=== PATIENT | female | born 1950 | race Caucasian/White ===

== ENCOUNTER → 2024-01-23 | Outpatient (CLI) | payer OTHER, SELFPAY ==
--- NOTE | 2024-01-23 15:00 | XR_ITS ---
Examination: Thyroid sonography complete TECHNIQUE: By resolution grayscale sonographic images thyroid lobes with color flow analysis Exam date and time: January 23, 2024 1531 hours Comparison July 25, 2015 INDICATIONS: Sonogram July 25, 2015 large solid nodule replacing the left thyroid lobe 4.7 x 3.4 x 3.4 cm, thyroid biopsy on the left September 20, 2015 FINDINGS: Left thyroid 7.3 x 3.5 x 4.1 cm Upper pole nodule 8 x 5 x 7 mm Upper pole nodule 8 x 5 x 6 mm Lower pole vascular nodule 5.5 x 3.2 x 4.3 cm Absent right thyroid lobe IMPRESSION: Mild interval enlargement of the vascular lower pole left thyroid nodule, consider ultrasound-guided fine-needle aspiration of this nodule
[2024-01-23 15:56] LABS: Collection Type, Urine Clean Catch
[2024-01-23 16:15] LABS: Basophils # (Auto) 0.1 Thou/mm3 (0.0-0.2); Basophils % (Auto) 1 % (0-2.5); Eosinophils # (Auto) 0.2 Thou/mm3 (0.0-0.5); Eosinophils % (Auto) 3 % (0-10); Hematocrit 37.4 % (36.0-46.0); Hemoglobin 12.4 g/dL (12.0-16.0); Immature Granulocytes % (Auto) 0 % (0-0); Immature Granulocytes Auto 0.02 Thou/mm3 (0.00-0.00); Lymphocytes # (Auto) 2.3 Thou/mm3 (1.0-4.8); Lymphocytes % (Auto) 31 % (10-50); Mean Corpuscular HGB Conc 33.2 g/dl (31.0-37.0); Mean Corpuscular Hemoglobin 30.8 pg (25.0-35.0); Mean Corpuscular Volume 93 fL (80-100); Monocytes # (Auto) 0.7 Thou/mm3 (0.0-0.8); Monocytes % (Auto) 9 % (0-12); Neutrophils # (Auto) 4.3 Thou/mm3 (1.8-7.7); Neutrophils % (Auto) 57 % (37-80); Nucleated Red Blood Cell % 0 /100 WBC (0); Platelet Count 198 Thou/mm3 (140-440); RDW Standard Deviation 41.4 fL (36.4-46.3); Red Blood Count 4.02 Miln/mm3 (4.00-5.20); White Blood Count 7.6 Thou/mm3 (3.6-11.0)
[2024-01-23 16:19] LABS: Bacteria,Urine Rare; Bilirubin,Urine Negative (Negative); Blood,Urine Negative (Negative); Clarity,Urine Clear (Clear/Hazy); Culture Indicated,Urine Not Indicated; Glucose, Urine Negative (Negative); Ketones,Urine Negative (Negative); Leukocyte Esterase,Urine Negative (Negative); Nitrite,Urine Negative (Negative); Protein,Urine Trace (Neg - Trace); RBC,Urine 2 /hpf (0-3); Specific Gravity,Urine 1.028 (1.001-1.035); Squamous Epithelial Cell,Urine 1 /hpf (0-5); WBC,Urine 1 /hpf (0-5)
[2024-01-23 16:22] LABS: Glucose Estimated Average 111 mg/dL (80-131); Hemoglobin A1C 5.5 % Hgb (4.8-6.0)
[2024-01-23 16:37] LABS: Color,Urine Lt-Yellow (Lt Yel-Yel)
[2024-01-23 16:38] LABS: Alanine Aminotransferase 19 U/L (10-49); Albumin, Serum 4.5 gm/dL (3.4-4.8); Albumin/Globulin Ratio 2.3 (1.2-2.2); Alkaline Phosphatase 83 U/L (46-116); Anion Gap 4 (7-16); Aspartate Amino Transferase 28 U/L (0-34); BUN/Creatinine Ratio 20 Ratio (12-20); Bilirubin,Total < 0.2 mg/dL (0.3-1.2); Blood Urea Nitrogen 22 mg/dL (9-23); Calcium 9.2 mg/dL (8.3-10.6); Calcium (Corrected) 9.2 mg/dL (8.5-10.1); Carbon Dioxide 29.6 mMol/L (20.0-31.0); Cardiac Risk Estimate 4.8 RATIO (3.7-5.6); Chloride 104 mMol/L (98-107); Cholesterol 214 mg/dL (132-200); Creatinine (Component) 1.1 mg/dL (0.6-1.3); Free T4 (Free Thyroxine) 1.33 ng/dL (0.89-1.76); Glucose 94 mg/dL (74-106); HDL Cholesterol 45 mg/dL (40-60); LDL Cholesterol,Calculated 112 mg/dL (0-130); Osmolality,Calculated 278 (275-295); Potassium 4.2 mMol/L (3.4-5.1); Sodium 138 mMol/L (136-145); Thyroid Stimulating Hormone 0.45 uIU/mL (0.55-4.78); Total Protein 6.5 gm/dL (5.7-8.2); Triglycerides 286 mg/dL (30-150); eGFR 53 See Note
== END | disposition home or self-care (01) ==
LOC: CDIM 15:22 → COPL 15:44
PROVIDERS: PCP Nurse Practitioner Family; Referring Provider Nurse Practitioner Family; Visit Provider Radiology Diagnostic Radiology
DX: E04.1 Nontoxic single thyroid nodule (principal); Z00.00 Encounter for general adult medical examination without abnormal findings; E04.9 Nontoxic goiter, unspecified
CPT/HCPCS: 36415; 76536; 80053; 80061; 81001; 83036; 84439; 84443; 85025

== ENCOUNTER 2024-04-21 11:52 | Emergency (ER) | payer OTHER, SELFPAY ==
[2024-04-21 12:07] VITALS: BP 121/83; PULSE 92; RESP 18; TEMP 36.4; O2SAT 96
--- NOTE | 2024-04-21 12:14 | EKG_ITS ---
[facility] Test Date: 2024-04-21 Pat Name: NELSON CROUCH Department: Room: - Gender: Female System Support Developer: : 1950 Requested By: ED Temporary Provider Order Number: [id number] Reading MD: ED Temporary Provider Measurements Intervals [place] Rate: 85 P: 57 OR: 157 QRS: 21 QRSD: 79 T: 44 QT: 346 QTc: 412 Interpretive Statements SINUS RHYTHM No previous ECG available for comparison /store/S0/[id number]/ecg/[id number].pdf
[2024-04-21 12:15] VITALS: PULSE 223; O2SAT 98; BMI 23.3
[2024-04-21 12:20] VITALS: PULSE 92
--- NOTE | 2024-04-21 12:38 | PD.EDARRY ---
ED Arrhythmia Palp. RME/HPI General Chief Complaint: Arrhythmia/Palpitations Stated Complaint: TACHYCARDIA Time Seen by Provider: 04/21/24 12:38 Arrival date/time: 04/21/24 11:52 Related Data Home Medications ?Medication ?Instructions ?Recorded ?Confirmed Vitamin B Complex (B Complex) 1 PO QDAY ##0 09/20/15 metoprolol tartrate 50 mg tablet 50 mg PO QDAY #0 tabs 09/20/15 tramadol 50 mg tablet (Ultram) 50 mg PO Q4HR PRN WRIST PAIN #0 09/20/15 tabs Allergies Allergy/AdvReac Type Severity Reaction Status Date / Time aspirin Allergy Mild Verified 09/20/15 11:16 codeine Allergy Mild Verified 09/20/15 11:16 POLLEN Allergy Mild Uncoded 08/30/09 23:09 Course Orders Category Date Time Status EKG (ED ONLY) *Do not use* NOW Care 04/21/24 12:14 Completed EKG (ED Only) Stat Exams 04/21/24 12:14 Draft Vital Signs Vital signs: Vital Signs Temperature 97.6 F 04/21/24 12:07 Pulse Rate 92 04/21/24 12:07 Respiratory Rate 18 04/21/24 12:07 Blood Pressure 121/83 04/21/24 12:07 Pulse Oximetry (%) 96 04/21/24 12:07 Oxygen Delivery Method Room Air 04/21/24 12:07 Arrhythmia/Palpitations Evaluation data The following diagnostics were reviewed and interpreted by me:: EKG tracing(s) (My interpretation of the EKG: NSR (85 bpm) with no ST-T changes. Gurjit Farley MD) Discharge Plan Prescriptions/Referrals Prescriptions/Med Rec: No Action tramadol [Ultram] 50 MG tablet 50 mg PO Q4HR PRN (Reason: WRIST PAIN) Qty: 0 Patient Comments: FOR PAIN, NOT TO EXCEED 8 TABS IN 24 HRS metoprolol tartrate 50 MG tablet 50 mg PO QDAY Qty: 0 Vitamin B Complex (B Complex) 1 TAB tablet 1 PO QDAY Qty: 0 Patient/Caregiver Discharge Instructions Print Language: Georgian
--- NOTE | 2024-04-21 12:49 | EDNOTE_ITS ---
ED Arrhythmia Palp. RME/HPI General Chief Complaint: Arrhythmia/Palpitations Stated Complaint: TACHYCARDIA Time Seen by Provider: 04/21/24 12:38 Arrival date/time: 04/21/24 11:52 RME / HPI RME / HPI narrative: DR. FARLEY MAIN ED EVALUATION: This section includes all my notes and documentations, including HPI, PE, and ED course.? Gurjit Farley MD HPI: 73 year old female with past medical history significant for mitral valve prolapse 1976 and since on metoprolol 50 mg every morning, SVT 4-5 years ago followed by Dr. Rosenberg, recently Dr. Rosenberg placed a heart monitor 2 weeks ago and showed some short SVT episodes; patient presents to the Emergency Department BIBA accompanied by with complaint of palpitations. Symptoms are moderate. Per EMS, patient was in SVT in the 220's and converted en route. Patient states she feels better now. Patient denies any recent sickness or drinking caffeine/ energy drinks. No chest pain or shortness of breath. No other complaints reported. ROS: All negative except as documented in HPI. Physical Exam: General:? Alert and oriented.? No acute distress when remaining still.? Eyes:? Conjunctivae and lids clear. ENT:? No nasal congestion.? ? Neck:? Supple. Heart:? RRR. Lungs:? No respiratory distress.? Good air movement.? No rhonchi, wheezing, rales.? Abdomen:? Soft and nontender.? Legs:? No clubbing, cyanosis, edema. Skin:? Warm and dry.? Neuro:? Alert and oriented X 3.? I reviewed all diagnostic test results. My interpretation of the EKG is?sinus rhythm with no acute ST?T changes. My interpretation of the chest x-ray is no acute findings. Blood tests unremarkable. At this point, diagnoses include converted SVT. Treatment: none. Remained stable. Recommended metoprolol 25 mg every night and more outpatient cardiac workup. Based on my best medical judgment, made decision no further evaluation or treatment indicated at this time.? Patient understands and agrees to the discharge instructions customized and printed, see below. Discharge instructions from Dr. Farley: --Fortunately, there is no very serious condition, such as pneumothorax or heart attack. --No physical exertion for 3 days to help rest the lungs. ?No smoking or exposure to smoking or pets or dust or cold air. --Zithromax to kill the germs causing the bronchitis. --Prednisone to help decrease the swelling in the airways. --Albuterol 2 puffs every 4-6 hours for 24 hours to help keep the airways open. Then as needed for cough or shortness of breath. --See a private doctor next week for recheck, if not completely better. --Seek immediate medical care with worsening or with any concerns. Gurjit Farley MD Related Data Home Medications ?Medication ?Instructions ?Recorded ?Confirmed Vitamin B Complex (B Complex) 1 PO QDAY ##0 09/20/15 metoprolol tartrate 50 mg tablet 50 mg PO QDAY #0 tabs 09/20/15 tramadol 50 mg tablet (Ultram) 50 mg PO Q4HR PRN WRIST PAIN #0 09/20/15 tabs Previous Rx's ?Medication ?Instructions ?Recorded metoprolol tartrate 25 mg tablet 25 mg PO QDAY #30 tab s 04/21/24 Allergies Allergy/AdvReac Type Severity Reaction Status Date / Time aspirin Allergy Mild Verified 09/20/15 11:16 codeine Allergy Mild Verified 09/20/15 11:16 POLLEN Allergy Mild Uncoded 08/30/09 23:09 Course Quality Measures none Orders Category Date Time Status EKG (ED ONLY) *Do not use* NOW Care 04/21/24 12:14 Completed EKG (ED Only) Stat Exams 04/21/24 12:14 Draft Vital Signs Vital signs: Vital Signs Temperature 97.6 F 04/21/24 12:07 Pulse Rate 92 04/21/24 12:07 Respiratory Rate 18 04/21/24 12:07 Blood Pressure 121/83 04/21/24 12:07 Pulse Oximetry (%) 96 04/21/24 12:07 Oxygen Delivery Method Room Air 04/21/24 12:07 Arrhythmia/Palpitations MDM Narrative MDM Narrative:: I, Aaliyah Lam, am scribing for and in the presence of Dr. Farley. Patient data External records reviewed:: EMS form Clinical information provided by:: patient, EMS and spouse Social determinants that could affect healthcare access:: none Patient has the following chronic illnesses:: mitral valve prolapse 1976 and since on metoprolol, SVT 4-5 years [address] followed by Dr. Rosenberg, recently Dr. Rosenberg placed a heart monitor 2 weeks ago and showed some short SVT episodes How is presenting disease/condition affected by chronic disease/condition?: caused by Evaluation data The following diagnostics were reviewed and interpreted by me:: lab results, radiology exam(s) and EKG tracing(s) Lab and/or radiology exams considered but not ordered:: none Interpretation Summary: Normal diagnostics Medications / Prescriptions Medications or Prescriptions considered but not ordered:: none Medication administrations:: none Consultations Consultation(s) initiated? (list below): No Diagnosis Differential diagnosis arrhythmia/palpitations: palpitations, anxiety, sinus tachycardia, artial fibrillation, artial flutter, ventricular premature beats, supraventricular tachycardia and ventricular tachycardia Most likely diagnosis given after review of the tests above:: SVT Admission Indicated Admission indicated?: not indicated Explain why admission is indicated or not indicated:: There was no indication for admission. Admission Request Was there a request for admission?: No Disposition Plan Disposition Plan: Discharge Discharge Attestation Discharge Attestation: The patient and all family members were given an opportunity to ask questions and understood the discharge instructions. Discharge instructions specifically effects, indications for sooner follow up or return to the emergency department, and the expected course of current diagnosis. Patient condition: Stable Discharge Plan Plan Patient Disposition: HOME (Self Care) Prescriptions/Referrals Prescriptions/Med Rec: New metoprolol tartrate 25 mg tablet 25 mg PO QDAY Qty: 30 0RF No Action tramadol [Ultram] 50 MG tablet 50 mg PO Q4HR PRN (Reason: WRIST PAIN) Qty: 0 Patient Comments: FOR PAIN, NOT TO EXCEED 8 TABS IN 24 HRS metoprolol tartrate 50 MG tablet 50 mg PO QDAY Qty: 0 Vitamin B Complex (B Complex) 1 TAB tablet 1 PO QDAY Qty: 0 Referrals: Saurav Solitario MD [Primary Care Provider] - In 1 week Problem List Clinical Impression: Supraventricular tachycardia Patient/Caregiver Discharge Instructions Discharge Activity: activity as tolerated Education Materials: ED About Arrhythmias Additional Instructions: Discharge instructions from Dr. Farley: 1. After extensive evaluation, there is no life-threatening condition.? Such as heart attack or pulmonary embolism (blood clots in your lungs) or pneumothorax (collapsed lung). 2. And there was no further SVT or other abnormal heart rhythm here. 3. Take metoprolol tartrate 25 mg every night until cleared by your grain ii farmworker. And continue your metoprolol tartrate 50 mg every morning. 4. See your grain ii farmworker on 04/22/2024 for recheck and further care. 5. Seek immediate medical care with worsening or with any concerns.?? Print Language: Russian Stand Alone Forms: [employer] Award Info., Patient Portal Info Letter
--- NOTE | 2024-04-21 12:52 | XR_ITS ---
Examination: AP chest single view Technique one AP portable upright chest single view Exam date and time: April 21, 2024 at 1313 hours INDICATIONS: Chest pressure and shortness of breath today FINDINGS: Normal heart size Minor accentuation of the basilar bronchovascular markings. No lobar pneumonia Trachea is deviated to the right which is related to the enlarged left thyroid, please see thyroid sonogram January 23, 2024 IMPRESSION: Basilar bronchitis pattern
[2024-04-21 13:27] LABS: Basophils % (Auto) 1 % (0-2.5); Eosinophils # (Auto) 0.1 Thou/mm3 (0.0-0.5); Eosinophils % (Auto) 2 % (0-10); Hematocrit 39.2 % (36.0-46.0); Hemoglobin 12.9 g/dL (12.0-16.0); Immature Granulocytes % (Auto) 0 % (0-0); Immature Granulocytes Auto 0.01 Thou/mm3 (0.00-0.00); Lymphocytes # (Auto) 1.7 Thou/mm3 (1.0-4.8); Lymphocytes % (Auto) 25 % (10-50); Mean Corpuscular HGB Conc 32.9 g/dl (31.0-37.0); Mean Corpuscular Hemoglobin 30.3 pg (25.0-35.0); Mean Corpuscular Volume 92 fL (80-100); Monocytes # (Auto) 0.6 Thou/mm3 (0.0-0.8); Monocytes % (Auto) 8 % (0-12); Neutrophils # (Auto) 4.2 Thou/mm3 (1.8-7.7); Neutrophils % (Auto) 64 % (37-80); Nucleated Red Blood Cell % 0 /100 WBC (0); Platelet Count 197 Thou/mm3 (140-440); RDW Standard Deviation 42.9 fL (36.4-46.3); Red Blood Count 4.26 Miln/mm3 (4.00-5.20); White Blood Count 6.6 Thou/mm3 (3.6-11.0)
[2024-04-21 13:44] LABS: Alanine Aminotransferase 16 U/L (10-49); Albumin, Serum 4.2 gm/dL (3.4-4.8); Albumin/Globulin Ratio 1.8 (1.2-2.2); Alkaline Phosphatase 79 U/L (46-116); Anion Gap 12 (7-16); Aspartate Amino Transferase 30 U/L (0-34); BUN/Creatinine Ratio 14 Ratio (12-20); Bilirubin,Total 0.3 mg/dL (0.3-1.2); Blood Urea Nitrogen 15 mg/dL (9-23); Calcium 9.5 mg/dL (8.3-10.6); Calcium (Corrected) 9.5 mg/dL (8.5-10.1); Carbon Dioxide 22.4 mMol/L (20.0-31.0); Chloride 109 mMol/L (98-107); Creatinine (Component) 1.1 mg/dL (0.6-1.3); Estimated Creatinine Clearance 35.5 mL/min (>60); Globulin 2.4 gm/dL (2.3-3.5); Glucose 110 mg/dL (74-106); Magnesium 1.8 mg/dL (1.6-2.6); Osmolality,Calculated 286 (275-295); Potassium 3.8 mMol/L (3.4-5.1); Sodium 143 mMol/L (136-145); Total Protein 6.6 gm/dL (5.7-8.2); Troponin I < 0.020 ng/mL (0.0-0.045); eGFR 53 See Note
[2024-04-21 13:45] LABS: Thyroid Stimulating Hormone 0.54 uIU/mL (0.55-4.78)
[2024-04-21 13:48] LABS: D-Dimer < 250 ng/mL (<600)
[2024-04-21 13:53] LABS: B-Type Natriuretic Peptide 69 pg/mL (0-100)
[2024-04-21 14:36] VITALS: BP 123/72; PULSE 79; RESP 18; TEMP 36.6; O2SAT 97
== END 2024-04-21 14:37 | disposition home or self-care (01) ==
PROVIDERS: Emergency Provider Emergency Medicine; PCP Family Medicine
DX: I47.10 Supraventricular tachycardia, unspecified (principal); R07.89 Other chest pain; R06.02 Shortness of breath
CPT/HCPCS: 36415; 71045; 80053; 81001; 83735; 83880; 84443; 84484; 85025; 85379; 93005; 99283

== ENCOUNTER → 2024-06-04 | Outpatient (CLI) | payer OTHER, SELFPAY ==
--- NOTE | 2024-06-04 11:08 | XR_ITS ---
Examination: PA lateral chest 2 views TECHNIQUE: Upright PA lateral chest 2 views Exam date and time: June 04, 2024 1132 hours Comparison April 21, 2024 INDICATIONS: Shortness of breath beginning 2 weeks ago. FINDINGS: Moderate hyperexpansion Normal heart size No pneumonia or pulmonary edema 8mm 2 mm pulmonary nodules right lower lobe IMPRESSION: COPD Recommend CT chest without contrast follow-up to assess pulmonary nodules right lower lobe
--- NOTE | 2024-06-04 11:12 | XR_ITS ---
Examination: Tibia-Fibula, right , 2 views Technique: Tibia-fibula AP lateral 2 views Date and time of exam: June 04, 2024 1125 hours INDICATIONS: Injury to the lower leg 3 weeks ago, lower leg pain. FINDINGS: Prominent osteopenia No fracture or dislocation IMPRESSION: No fracture or dislocation
== END | disposition home or self-care (01) ==
PROVIDERS: PCP Nurse Practitioner Family; Referring Provider Nurse Practitioner Family; Visit Provider Nurse Practitioner Family
DX: J44.9 Chronic obstructive pulmonary disease, unspecified (principal); S80.11XA Contusion of right lower leg, initial encounter; X58.XXXA Exposure to other specified factors, initial encounter
CPT/HCPCS: 71046; 73590

== ENCOUNTER 2025-02-11 16:41 | Emergency (ER) | payer OTHER, SELFPAY ==
[2025-02-11 16:52] VITALS: BP 91/60; PULSE 132; RESP 22; TEMP 36.4; O2SAT 98
[2025-02-11 17:23] LABS: Lactate (Lactic Acid) 2.8 mMol/L (0.4-2.0)
[2025-02-11 17:24] LABS: Basophils # (Auto) 0.0 Thou/mm3 (0.0-0.2); Basophils % (Auto) 0 % (0-2.5); Eosinophils # (Auto) 0.0 Thou/mm3 (0.0-0.5); Eosinophils % (Auto) 0 % (0-10); Hematocrit 28.3 % (36.0-46.0); Hemoglobin 9.3 g/dL (12.0-16.0); Immature Granulocytes Auto 0.02 Thou/mm3 (0.00-0.00); Lymphocytes # (Auto) 2.2 Thou/mm3 (1.0-4.8); Lymphocytes % (Auto) 24 % (10-50); Mean Corpuscular HGB Conc 32.9 g/dl (31.0-37.0); Mean Corpuscular Hemoglobin 30.7 pg (25.0-35.0); Mean Corpuscular Volume 93 fL (80-100); Monocytes # (Auto) 0.5 Thou/mm3 (0.0-0.8); Monocytes % (Auto) 5 % (0-12); Neutrophils # (Auto) 6.5 Thou/mm3 (1.8-7.7); Neutrophils % (Auto) 71 % (37-80); Nucleated Red Blood Cell # 0.00 Thou/mm3 (0.00-0.00); Nucleated Red Blood Cell % 0 /100 WBC (0); Platelet Count 196 Thou/mm3 (140-440); RDW Standard Deviation 44.2 fL (36.4-46.3); Red Blood Count 3.03 Miln/mm3 (4.00-5.20); White Blood Count 9.3 Thou/mm3 (3.6-11.0)
[2025-02-11 17:57] LABS: Alanine Aminotransferase 10 U/L (10-49); Albumin, Serum 4.0 gm/dL (3.4-4.8); Albumin/Globulin Ratio 1.8 (1.2-2.2); Alkaline Phosphatase 71 U/L (46-116); Anion Gap 14 (7-16); Aspartate Amino Transferase 22 U/L (0-34); BUN/Creatinine Ratio 53 Ratio (12-20); Bilirubin,Total 0.3 mg/dL (0.3-1.2); Blood Urea Nitrogen 42 mg/dL (9-23); Calcium 9.3 mg/dL (8.3-10.6); Calcium (Corrected) 9.3 mg/dL (8.5-10.1); Carbon Dioxide 23.4 mMol/L (20.0-31.0); Chloride 109 mMol/L (98-107); Creatinine (Component) 0.8 mg/dL (0.6-1.3); Globulin 2.2 gm/dL (2.3-3.5); Glucose 166 mg/dL (74-106); Osmolality,Calculated 305 (275-295); Potassium 3.9 mMol/L (3.4-5.1); Sodium 146 mMol/L (136-145); Total Protein 6.2 gm/dL (5.7-8.2); Troponin I < 0.020 ng/mL (0.0-0.045); eGFR > 60 See Note
[2025-02-11] MEDS: SODIUM CHLORIDE 0.9% 1000 ML 1,000 ML 999 ML IV ×2 (18:47→21:23)
[2025-02-11 18:49] VITALS: BP 82/59; PULSE 105; RESP 20; TEMP 36.5; O2SAT 97
[2025-02-11 19:18] VITALS: BP 112/60; PULSE 83; RESP 20; O2SAT 98
[2025-02-11 20:10] LABS: Collection Type, Urine Clean Catch
[2025-02-11 20:20] LABS: Reflex Lactate? Y
[2025-02-11 20:28] LABS: Bilirubin,Urine Negative (Negative); Blood,Urine Negative (Negative); Clarity,Urine Turbid (Clear/Hazy); Color,Urine Lt-Yellow (Lt Yel-Yel); Glucose, Urine Negative (Negative); Hyaline Casts,Urine < 1 /hpf (0-1); Ketones,Urine Negative (Negative); Leukocyte Esterase,Urine Negative (Negative); Nitrite,Urine Negative (Negative); PH,Urine 5.5 (5.0-7.0); Protein,Urine Negative (Neg - Trace); RBC,Urine < 1 /hpf (0-3); Specific Gravity,Urine 1.020 (1.001-1.035); Squamous Epithelial Cell,Urine 3 /hpf (0-5); Urobilinogen,Urine Negative mg/dL (0.0-1.0); WBC,Urine 1 /hpf (0-5)
[2025-02-11 20:35] LABS: Lactic Acid, 3 HR 3.0 mMol/L (0.4-2.0)
[2025-02-11 21:32] VITALS: BP 109/59; PULSE 84; RESP 20; TEMP 37.4; O2SAT 98
--- NOTE | 2025-02-11 22:05 | EDNOTE_ITS ---
ED GI Bleed RME/HPI General Chief complaint: GI Bleed Stated complaint: BM X 10 today with blood in it Time Seen by Provider: 02/11/25 16:53 Source: patient and family Arrival date/time: 02/11/25 16:41 Mode of arrival: wheelchair Limitations: no limitations RME / HPI RME / HPI Narrative: This patient is a pleasant but unhealthy 74-year-old female who arrives to the ED today for evaluation of stomach pain and GI bleed concerns for the past day. Patient states that yesterday she had a bowel movement which resulted in some dark-colored stool. Patient states that today she had a bowel movement that resulted in some blood clad stools. Patient states she has a history of GI concerns and has had rectal bleeding events in the past. Patient states intermittent nausea. Patient appears to be in poor overall health. Patient was pale. Related Data Home Medications ?Medication ?Instructions ?Recorded ?Confirmed Vitamin B Complex (B Complex) 1 PO QDAY ##0 09/20/15 metoprolol tartrate 50 mg tablet 50 mg PO QDAY #0 tabs 09/20/15 tramadol 50 mg tablet (Ultram) 50 mg PO Q4HR PRN WRIST PAIN #0 09/20/15 tabs Previous Rx's ?Medication ?Instructions ?Recorded metoprolol tartrate 25 mg tablet 25 mg PO QDAY #30 tab s 04/21/24 dicyclomine 10 mg capsule 10 mg PO QID PRN abdominal p ain 02/11/25 #20 caps omeprazole 20 mg capsule,delayed 20 mg PO QDAY #14 cap s 02/11/25 release ondansetron 4 mg disintegrating 4 mg PO Q6H PRN nausea and 02/11/25 tablet vomiting #14 tabs Allergies Allergy/AdvReac Type Severity Reaction Status Date / Time aspirin Allergy Mild Gastrointestinal Verified 02/11/25 16:47 Upset codeine Allergy Mild Hives Verified 02/11/25 16:47 POLLEN Allergy Mild Anaphylaxis Uncoded 02/11/25 16:47 Review of Systems Review of Systems Systems Reviewed: All systems reviewed, normal except as documented Past Medical History Past Medical History CARDIAC: Positive Cardiac Arrhythmia (SVT); Negative Congestive Heart Failure RESPIRATORY: Positive Asthma; Negative Chronic Obstructive Pulmonary Disease (COPD) GASTROINTESTINAL: Positive Hemorrhoids GENITOURINARY: Negative Renal Disease REPRODUCTIVE: Positive Breast Cancer (RIGHT BREAST) ENDOCRINE: Positive Hypothyroidism; Negative Diabetes Mellitus Type 1 or Diabetes Mellitus Type 2 HEMATOLOGIC: Positive Blood Disorders OTHER HISTORY: Positive Blood Transfusions, Cancer and Breast Cancer (RIGHT BREAST) Surgical History SURGICAL: Positive Thyroidectomy Social History SMOKING STATUS: Never smoker ED Exam Narrative Physical exam: Patient appears to be a poor overall health and was pale at time of evaluation. Patient appears older than her chronology. General Limitations: Present no limitations General appearance: Present alert and in distress (Due to anxiety related to her abdominal pain concerns as much as actual abdominal pain.) Head Head exam: Present atraumatic Eye Eye exam: Present normal appearance, PERRL and EOMI ENT ENT exam: Present normal exam, normal oropharynx and mucous membranes moist Neck Neck exam: Present normal inspection, full ROM and trachea midline Chest Chest inspection: Present normal inspection and symmetric chest wall rise Respiratory Respiratory exam: Present normal lung sounds bilaterally Cardiovascular Cardiovascular exam: Present regular rate, normal rhythm and normal heart sounds Abdominal Exam Abdominal exam: Present other (Diffuse nonspecific epigastric tenderness to palpation extending towards the umbilicus. No pulsatile masses appreciated. Abdomen was reasonably soft.) Rectal Exam Rectal exam: Present deferred Extremities Exam Extremities exam: Present normal inspection and full ROM Back Exam Back exam: Present normal inspection and full ROM Neurological Exam Neurological exam: Present alert, oriented X3 and CN II-XII intact Psychiatric Psychiatric exam: Present normal affect and normal mood Skin Skin exam: Present warm, dry, intact and pallor Course Quality Measures none Orders Category Date Time Status IV [Insert IV] NOW Care 02/11/25 17:00 Active Straight [In and Out Catheter] X1 Care 02/11/25 20:48 Completed CBC Stat Lab 02/11/25 17:17 Completed CMP [Comprehensive Metabolic Panel] Stat Lab 02/11/25 17:17 Completed Lactate (Lactic Acid) Stat Lab 02/11/25 17:17 Completed Lactic Acid, 3 HR Stat Lab 02/11/25 20:29 Completed Troponin I Stat Lab 02/11/25 17:17 Completed UA [Urinalysis] Stat Lab 02/11/25 20:06 Completed HYDROmorphone INJ [Dilaudid Inj] Med 02/11/25 16:57 Discontinued 0.5 mg IM X1 ONE Ondansetron Inj [Zofran Inj] Med 02/11/25 16:57 Discontinued 4 mg IVP X1 ONE Sodium Chloride 0.9% 1000 ml [Ns] 1,000 ml Med 02/11/25 16:57 Discontinued IV 999 mls/hr Sodium Chloride 0.9% 1000 ml [Ns] 1,000 ml Med 02/11/25 21:08 Active IV 999 mls/hr As noted above Vital Signs Vital signs: Vital Signs Temperature 97.6 F 02/11/25 16:52 Pulse Rate 132 H 02/11/25 16:52 Respiratory Rate 22 H 02/11/25 16:52 Blood Pressure 91/60 02/11/25 16:52 Pulse Oximetry (%) 98 02/11/25 16:52 Oxygen Delivery Method Room Air 02/11/25 16:52 As noted above GI Bleed MDM Narrative MDM Narrative:: All studies performed the ED were evaluated by me personally. Serum studies revealed a anemic state that was not critical as well as a mildly elevated BUN and lactic acid. Patient received 2 rounds of fluid and laboratory values returned to acceptable range. Patient data External records reviewed:: [facility] previous records Clinical information provided by:: patient and family Social determinants that could affect healthcare access:: none Patient has the following chronic illnesses:: Chronic GI concerns How is presenting disease/condition affected by chronic disease/condition?: exacerbated by Evaluation data The following diagnostics were reviewed and interpreted by me:: lab results and radiology exam(s) Lab and/or radiology exams considered but not ordered:: None Interpretation Summary: Gastric ulcer Medications / Prescriptions Medications or Prescriptions considered but not ordered:: None Medication administrations:: Medication Administration History Sodium Chloride (Ns) 1,000 mls @ 999 mls/hr IV .Q1H1M ONE Stop: 02/11/25 22:08 Last Admin: 02/11/25 21:23 Dose: 999 mls/hr Documented By: DEVANTE Discontinued Medications Hydromorphone HCl (Hydromorphone Inj 2 Mg/Ml Vial) 0.5 mg IM X1 ONE Stop: 02/11/25 16:58 Last Admin: 02/11/25 18:54 Dose: Not Given Documented By: CHEL Non-Admin Reason: contraindicated Sodium Chloride (Ns) 1,000 mls @ 999 mls/hr IV .Q1H1M ONE Stop: 02/11/25 17:57 Last Infusion: 02/11/25 19:50 Dose: Infused Documented By: Admin: 02/11/25 18:47 Dose: 999 mls/hr Documented By: CHEL Ondansetron HCl (Ondansetron Inj 2 Mg/Ml Inj 2 Ml) 4 mg IVP X1 ONE; Protocol Stop: 02/11/25 16:58 Last Admin: 02/11/25 18:55 Dose: Not Given Documented By: CHEL Non-Admin Reason: contraindicated As noted above Consultations Consultation(s) initiated? (list below): No Diagnosis GI bleed differential diagnosis: hemorrhoids, gastritis and other (Gastric ulcer) Most likely diagnosis given after review of the tests above:: Gastric ulcer Admission Indicated Admission indicated?: not indicated Explain why admission is indicated or not indicated:: Unwarranted Admission Request Was there a request for admission?: No Disposition Plan Disposition Plan: Discharge Discharge Attestation Discharge Attestation: The patient and all family members were given an opportunity to ask questions and understood the discharge instructions. Discharge instructions specifically effects, indications for sooner follow up or return to the emergency department, and the expected course of current diagnosis. Patient condition: Stable Discharge Plan Plan Patient Disposition: HOME (Self Care) Prescriptions/Referrals Prescriptions/Med Rec: New omeprazole 20 mg capsule,delayed release(DR/EC) 20 mg PO QDAY Qty: 14 0RF dicyclomine 10 mg capsule 10 mg PO QID PRN (Reason: abdominal pain) Qty: 20 0RF ondansetron 4 mg tablet,disintegrating 4 mg PO Q6H PRN (Reason: nausea and vomiting) Qty: 14 0RF No Action tramadol [Ultram] 50 MG tablet 50 mg PO Q4HR PRN (Reason: WRIST PAIN) Qty: 0 Patient Comments: FOR PAIN, NOT TO EXCEED 8 TABS IN 24 HRS metoprolol tartrate 50 MG tablet 50 mg PO QDAY Qty: 0 Vitamin B Complex (B Complex) 1 TAB tablet 1 PO QDAY Qty: 0 metoprolol tartrate 25 mg tablet 25 mg PO QDAY Qty: 30 0RF Referrals: Saurav Solitario MD [Primary Care Provider, Family Practice] - In 1 week Problem List Clinical Impression: Gastritis, Gastric ulcer Patient/Caregiver Discharge Instructions Education Materials: ED Gastritis (Adult), ED PEPTIC ULCER vs GASTRITIS Print Language: Scottish Stand Alone Forms: [employer] Award Info., Patient Portal Info Letter
[2025-02-11 22:25] VITALS: BP 123/59; PULSE 87; RESP 20; O2SAT 100
== END 2025-02-11 22:26 | disposition home or self-care (01) ==
PROVIDERS: Physician Assistant; Emergency Provider Emergency Medicine; PCP Family Medicine
DX: K29.70 Gastritis, unspecified, without bleeding (principal); K25.9 Gastric ulcer, unspecified as acute or chronic, without hemorrhage or perforation
CPT/HCPCS: 36415; 51701; 80053; 81001; 83605; 84484; 85025; 96360; 96361; 99283; J7030